=== PATIENT | male | born 1970 | race Caucasian/White ===

== ENCOUNTER 2024-11-18 18:59 | Emergency (ER) | payer SELFPAY ==
[2024-11-18 19:12] VITALS: BP 171/100; PULSE 89; O2SAT 100
--- NOTE | 2024-11-18 19:12 | ED_ITS ---
Discharge Plan Disposition Patient Disposition: Home, Self-Care Condition: Good Referrals Follow up/Referrals: Provider,Referral, MD [Primary Care Provider, Medical] - See instructions Activity Restrictions/Add. Instructions Additional Instructions/Restrictions: I recommend following up with your PCP if you have any persistent new or worsening signs or symptoms. Additionally you were significantly hypertensive on arrival and should keep a blood pressure record when you return turn to see your PCP in [place]. If you have any need to return to the emergency department for worsening signs or symptoms return as needed. Clinical Impressions Clinical Impression: Headache Qualifiers: Headache type: unspecified Headache chronicity pattern: acute headache I ntractability: not intractable Qualified Code(s): R51.9 - Headache, unspecified Print Language Print Language: Frisian Discharge ED Provider: Stephan Silva Adult HPI <LESLIE Claire - Last Filed: 11/18/24 21:46> General Chief complaint: Fever Stated complaint: Fever,body aches Time Seen by Provider: 11/18/24 19:12 History of Present Illness HPI narrative: Patient presents for evaluation of subjective fever. Patient reports that he arrived from [place] for his grandsons birthday and has felt unwell. 3 days ago he had a right lower molar pulled. He is supposed to be on Augmentin and pain medication however he has lost his antibiotic but is still having the pain medication. Today he stated that he has have a pounding headache and felt feverish. He denies any chest pain shortness of breath hemoptysis hematochezia melena hematemesis hematuria nausea vomiting or diarrhea. Related Data Allergies Allergy/AdvReac Type Severity Reaction Status Date / Time No Known Allergies Allergy Verified 11/18/24 19:25 [facility] <LESLIE Claire - Last Filed: 11/18/24 21:46> [facility] Disclaimer: The information contained in this section may have been updated after the patient was seen, as this information can be updated by other users. Social History (Updated 11/18/24 @ 21:46 by LESLIE Claire) Smoking Status: Never smoker alcohol intake: never current occupational status: employed Travel in the last 8 weeks?: None Have you lived/traveled outside US in past 30 days?: No Contact w/someone who lives/traveled outside US past 30 days?: No Exposure to someone with infectious disease in past 14 days?: No Do you have a fever (greater than 100.4 F or 38 C)?: No Have you tested positive for COVID-19?: No Exposed to someone with COVID-19 in past 14 days?: No Do you have a sore throat?: No Do you have a cough?: No Do you have any weakness?: No Do you have any diarrhea?: No Are you experiencing any unusual bleeding?: No Do you have any muscle aches/pain?: No Do you have any abdominal pain?: No Are you experiencing loss of taste or smell?: No <LESLIE Claire - Last Filed: 11/18/24 21:46> ROS Obtained: Yes Systems reviewed as appropriate & no additional complaints except as documented Physical Exam <LESLIE Claire - Last Filed: 11/18/24 21:46> General General appearance: alert and in no apparent distress Respiratory Respiratory exam: Present normal lung sounds bilaterally Cardiovascular Cardiovascular exam: Present regular rate Neurological Exam Neurological exam: Present alert, oriented X3 and CN II-XII intact Medical Decision Making <LESLIE Claire - Last Filed: 11/18/24 21:46> Medical Records Medical records reviewed: Yes I reviewed the patient's medical records. Screening: Per USPSTF and CDC recommendations, given the prevalence of disease in our region, it is our hospital?s policy to screen for HIV and viral Hepatitis for all patients aged 18 and over and those with ongoing risk factors. Shawn Inquiry Pt receiving controlled substance: No Vital Signs: 11/18/24 19:12 11/18/24 19:21 11/18/24 22:06 Temperature 98.1 F 98.1 F Temperature Source Oral Pulse Rate 89 95 H Pulse Rate [Right] 99 H Respiratory Rate 16 20 Blood Pressure 171/100 H 116/68 Blood Pressure [Right Arm] 171/100 H Blood Pressure Mean [Right Arm] 123 02 Sat by Pulse Oximetry 100 98 Oxygen Delivery Method Room Air Lab Data Lab results reviewed: Yes I reviewed the patient's lab results. Lab Results 11/18/24 19:45: WBC 4.6 L, RBC 4.50 L, Hgb 14.1, Hct 41.9 L, MCV 93.1, MCH 31.3 H, MCHC 33.7, RDW 12.8, Plt Count 172, MPV 10.2, Neut % (Auto) 59.2, Lymph % (Auto) 29.5, Lewis % (Auto) 10.5 H, Eos % (Auto) 0.4, Baso % (Auto) 0.2, Neut # (Auto) 2.7, Lymph # (Auto) 1.4, Lewis # (Auto) 0.5, Eos # (Auto) 0.0, Baso # (Auto) 0.0, Sodium 134 L, Potassium 4.2, Chloride 101, Carbon Dioxide 32 H, Anion Gap 5.2, BUN 12, Creatinine 1.00, Estimated Creat Clear 99, Estimated GFR 78, Est GFR ( Amer) 95, Glucose 102 H, Calcium 9.7, Magnesium 1.9, Total Bilirubin 0.7, AST 38, ALT 26, Alkaline Phosphatase 74, C-Reactive Protein 3.3, Total Protein 9.6 H, Albumin 4.1, Globulin 5.5 H, Albumin/Globulin Ratio 0.7 L, Procalcitonin 0.081, Urine Color Yellow, Urine Appearance Clear, Urine pH 6.0, Ur Specific Douds 1.025, Urine Protein Trace, Urine Glucose (UA) Negative, Urine Ketones Negative, Urine Blood Negative, Urine Nitrate Negative, Urine Bilirubin Negative, Urine Urobilinogen 4.0, Ur Leukocyte Esterase Negative, Urine RBC 3-5, Urine WBC 3-5, Ur Squamous Epith Cells 5-10, Urine Bacteria 1+, Urine Mucus 2+ 11/18/24 19:45 11/18/24 19:45 Orders (Tests/Meds): ED MEDICATIONS Discontinued Medications Generic Name Dose Route Start Last Admin Trade Name Noris PRN Reason Stop Dose Admin Acetaminophen 1,000 mg 11/18/24 19:24 11/18/24 19:57 Acetaminophen 1,000mg/100ml Vial IV 11/18/24 19:25 1,000 mg ONCE ONE Administration Dexamethasone Sodium Phosphate 10 mg 11/18/24 20:42 11/18/24 21:08 Dexamethasone 4mg/Ml 5ml Mdv IV 11/18/24 20:43 10 mg ONCE ONE Administration Diphenhydramine HCl 50 mg 11/18/24 20:42 11/18/24 20:57 Diphenhydramine 50mg/Ml Vial IV 11/18/24 20:43 50 mg ONCE ONE Administration Sodium Chloride 1,000 mls @ 999 mls/hr 11/18/24 19:27 11/18/24 19:57 Sod Chlor 0.9% 1000ml Bag IV 11/18/24 20:27 999 mls/hr .Q1H1M ONE Administration Iopamidol 80 ml 11/18/24 21:08 11/18/24 21:24 Iopamidol-370 (76%);100ml Bottle IV 11/18/24 21:09 80 ml ONCE ONE Administration Ketorolac Tromethamine 15 mg 11/18/24 19:24 11/18/24 19:58 Ketorolac 30mg/Ml Vial IV 11/18/24 19:25 15 mg ONCE ONE Administration Methocarbamol 500 mg 11/18/24 20:42 11/18/24 20:57 Methocarbamol 500mg Tablet PO 11/18/24 20:43 500 mg ONCE ONE Administration Ondansetron HCl 4 mg 11/18/24 19:24 11/18/24 19:58 Ondansetron 4mg/2ml Vial IV 11/18/24 19:25 4 mg ONCE ONE Administration Prochlorperazine Edisylate 10 mg 11/18/24 20:58 11/18/24 21:15 Prochlorperazine 10mg/2ml Vial IV 11/18/24 20:59 10 mg ONCE ONE Administration Sodium Chloride 40 ml 11/18/24 21:08 11/18/24 21:24 0.9 % Sodium Chloride 50 Ml Vial IV 11/18/24 21:09 40 ml ONCE ONE Administration Sodium Chloride 10 ml 11/18/24 21:08 11/18/24 21:24 Sodium Chloride 0.9% 10ml Syr (Rad Only) IV 12/18/24 21:07 10 ml NEEDED PRN Administration Maintain IV Site ORDERS Category Date Time Status CT angio head Stat Cat Scan 11/18/24 20:[address] angio neck Stat Cat Scan 11/18/24 20:[address] head/brain wo con Stat Cat Scan 11/18/24 20:54 Completed CBC w/Auto Diff [Complete Blood Count Auto Diff] Stat Lab 11/18/24 19:45 Completed CMP [Comprehensive Metabolic Panel] Stat Lab 11/18/24 19:45 Completed CRP [C-Reactive Protein] Stat Lab 11/18/24 19:45 Completed Magnesium Stat Lab 11/18/24 19:45 Completed Procalcitonin Stat Lab 11/18/24 19:45 Completed UA [Urinalysis and Microscopic] Stat Lab 11/18/24 19:45 Completed Medical Decision Narrative: In summary patient is a 54-year-old male who presents to the emergency department for evaluation of subjective fever and headache. Patient is hemodynamically stable but is hypertensive on arrival with a blood pressure 171/100 heart rate 89 normal sinus rhythm on bedside monitor breathing 16 times a minute satting at 100% room air upon arrival, afebrile at 98.1. Physical exam is remarkable for severe dental caries in the oropharynx however there is no evidence of abscess cellulitis Esteban's angina palpable cervical lymph nodes. Pupils equal round reactive to light cranial nerves II through XII intact grossly to exam patient is awake alert and oriented person place and circumstance. Patient has no nuchal rigidity or meningeal signs C-spine is nontender. Patient has full range of motion of his neck without pain.. Differential diagnosis includes headache versus dehydration versus sepsis versus infection etc. Initial workup will be conducted with hematologic labs CT scan of the head without contrast CTA of the head and neck. Initial interventions include crystalloid bolus Toradol Tylenol and migraine cocktail. Initial workup reviewed by me shows his hematologic labs are nonactionable with no evidence of sepsis and my informal potation of his imaging shows no acute intracranial process or vascular abnormality prior to radiology read. Please see final read formal interpretation. Upon repeat evaluation patient had complete resolution of his symptoms after initial intervention. Given this patient is appropriate for discharge with follow-up with his PCP as an outpatient for his blood pressure and strict return precautions. <Stephan Silva MD - Last Filed: 11/18/24 23:22> Vital Signs: 11/18/24 19:12 11/18/24 19:21 11/18/24 22:06 Temperature 98.1 F 98.1 F Temperature Source Oral Pulse Rate 89 95 H Pulse Rate [Right] 99 H Respiratory Rate 16 20 Blood Pressure 171/100 H 116/68 Blood Pressure [Right Arm] 171/100 H Blood Pressure Mean [Right Arm] 123 02 Sat by Pulse Oximetry 100 98 Oxygen Delivery Method Room Air Lab Data Lab Results 11/18/24 19:45: WBC 4.6 L, RBC 4.50 L, Hgb 14.1, Hct 41.9 L, MCV 93.1, MCH 31.3 H, MCHC 33.7, RDW 12.8, Plt Count 172, MPV 10.2, Neut % (Auto) 59.2, Lymph % (Auto) 29.5, Lewis % (Auto) 10.5 H, Eos % (Auto) 0.4, Baso % (Auto) 0.2, Neut # (Auto) 2.7, Lymph # (Auto) 1.4, Lewis # (Auto) 0.5, Eos # (Auto) 0.0, Baso # (Auto) 0.0, Sodium 134 L, Potassium 4.2, Chloride 101, Carbon Dioxide 32 H, Anion Gap 5.2, BUN 12, Creatinine 1.00, Estimated Creat Clear 99, Estimated GFR 78, Est GFR ( Amer) 95, Glucose 102 H, Calcium 9.7, Magnesium 1.9, Total Bilirubin 0.7, AST 38, ALT 26, Alkaline Phosphatase 74, C-Reactive Protein 3.3, Total Protein 9.6 H, Albumin 4.1, Globulin 5.5 H, Albumin/Globulin Ratio 0.7 L, Procalcitonin 0.081, Urine Color Yellow, Urine Appearance Clear, Urine pH 6.0, Ur Specific Douds 1.025, Urine Protein Trace, Urine Glucose (UA) Negative, Urine Ketones Negative, Urine Blood Negative, Urine Nitrate Negative, Urine Bilirubin Negative, Urine Urobilinogen 4.0, Ur Leukocyte Esterase Negative, Urine RBC 3-5, Urine WBC 3-5, Ur Squamous Epith Cells 5-10, Urine Bacteria 1+, Urine Mucus 2+ Orders (Tests/Meds): ED MEDICATIONS Discontinued Medications Generic Name Dose Route Start Last Admin Trade Name Freq PRN Reason Stop Dose Admin Acetaminophen 1,000 mg 11/18/24 19:24 11/18/24 19:57 Acetaminophen 1,000mg/100ml Vial IV 11/18/24 19:25 1,000 mg ONCE ONE Administration Dexamethasone Sodium Phosphate 10 mg 11/18/24 20:42 11/18/24 21:08 Dexamethasone 4mg/Ml 5ml Mdv IV 11/18/24 20:43 10 mg ONCE ONE Administration Diphenhydramine HCl 50 mg 11/18/24 20:42 11/18/24 20:57 Diphenhydramine 50mg/Ml Vial IV 11/18/24 20:43 50 mg ONCE ONE Administration Sodium Chloride 1,000 mls @ 999 mls/hr 11/18/24 19:27 11/18/24 19:57 Sod Chlor 0.9% 1000ml Bag IV 11/18/24 20:27 999 mls/hr .Q1H1M ONE Administration Iopamidol 80 ml 11/18/24 21:08 11/18/24 21:24 Iopamidol-370 (76%);100ml Bottle IV 11/18/24 21:09 80 ml ONCE ONE Administration Ketorolac Tromethamine 15 mg 11/18/24 19:24 11/18/24 19:58 Ketorolac 30mg/Ml Vial IV 11/18/24 19:25 15 mg ONCE ONE Administration Methocarbamol 500 mg 11/18/24 20:42 11/18/24 20:57 Methocarbamol 500mg Tablet PO 11/18/24 20:43 500 mg ONCE ONE Administration Ondansetron HCl 4 mg 11/18/24 19:24 11/18/24 19:58 Ondansetron 4mg/2ml Vial IV 11/18/24 19:25 4 mg ONCE ONE Administration Prochlorperazine Edisylate 10 mg 11/18/24 20:58 11/18/24 21:15 Prochlorperazine 10mg/2ml Vial IV 11/18/24 20:59 10 mg ONCE ONE Administration Sodium Chloride 40 ml 11/18/24 21:08 11/18/24 21:24 0.9 % Sodium Chloride 50 Ml Vial IV 11/18/24 21:09 40 ml ONCE ONE Administration Sodium Chloride 10 ml 11/18/24 21:08 11/18/24 21:24 Sodium Chloride 0.9% 10ml Syr (Rad Only) IV 12/18/24 21:07 10 ml NEEDED PRN Administration Maintain IV Site ORDERS Category Date Time Status CT angio head Stat Cat Scan 11/18/24 20:[address] angio neck Stat Cat Scan 11/18/24 20:[address] head/brain wo con Stat Cat Scan 11/18/24 20:54 Completed CBC w/Auto Diff [Complete Blood Count Auto Diff] Stat Lab 11/18/24 19:45 Completed CMP [Comprehensive Metabolic Panel] Stat Lab 11/18/24 19:45 Completed CRP [C-Reactive Protein] Stat Lab 11/18/24 19:45 Completed Magnesium Stat Lab 11/18/24 19:45 Completed Procalcitonin Stat Lab 11/18/24 19:45 Completed UA [Urinalysis and Microscopic] Stat Lab 11/18/24 19:45 Completed Medical Decision Narrative: In summary patient is a 54-year-old male who presents to the emergency department for evaluation of subjective fever and headache. Patient is hemodynamically stable but is hypertensive on arrival with a blood pressure 171/100 heart rate 89 normal sinus rhythm on bedside monitor breathing 16 times a minute satting at 100% room air upon arrival, afebrile at 98.1. Physical exam is remarkable for severe dental caries in the oropharynx however there is no evidence of abscess cellulitis Esteban's angina palpable cervical lymph nodes. Pupils equal round reactive to light cranial nerves II through XII intact grossly to exam patient is awake alert and oriented person place and circumstance. Patient has no nuchal rigidity or meningeal signs C-spine is nontender. Patient has full range of motion of his neck without pain.. Differential diagnosis includes headache versus dehydration versus sepsis versus infection etc. Initial workup will be conducted with hematologic labs CT scan of the head without contrast CTA of the head and neck. Initial interventions include crystalloid bolus Toradol Tylenol and migraine cocktail. Initial workup reviewed by me shows his hematologic labs are nonactionable with no evidence of sepsis and my informal potation of his imaging shows no acute intracranial process or vascular abnormality prior to radiology read. Please see final read formal interpretation. Upon repeat evaluation patient had complete resolution of his symptoms after initial intervention. Given this patient is appropriate for discharge with follow-up with his PCP as an outpatient for his blood pressure and strict return precautions. I was consulted by the MATTHEW, and we discussed the complexity of the problems being addressed.I approved the treatment and management plan for this patient?s care in the Emergency Department, thus performing a substantive portion of the medical decision making.Signed, Stephan Silva MD MBA Critical Care <LESLIE Claire - Last Filed: 11/18/24 21:46> Critical Care Time Critical Care Time: No
[2024-11-18 19:21] VITALS: BP 171/100; PULSE 99; RESP 16; TEMP 36.7; O2SAT 98; BMI 25.1
[2024-11-18 19:50] LABS: Appearance,Urine CLEAR (Clear); Bilirubin,Urine Negative (Negative); Blood, Urine Negative (Negative); Color,Urine YELLOW (Yellow); Glucose,Urine (UA) Negative (Negative); Ketones,Urine Negative (Negative); Leukocyte Esterase,Urine Negative (Negative); Nitrate,Urine Negative (Negative); Protein,Urine TRACE (Negative); Specific Gravity, Urine 1.025 (1.005-1.030)
[2024-11-18 19:52] LABS: Microscopic, Urine URINE MICROSCOPIC (MICROSCOPIC)
[2024-11-18] MEDS: 0.9 % SODIUM CHLORIDE 1000ML 1,000 ML 999 ML IV (19:57)
[2024-11-18] MEDS: ACETAMINOPHEN 1,000MG/100ML VIAL 1000 MG IV (19:57)
[2024-11-18] MEDS: ONDANSETRON 4MG/2ML VIAL 4 MG IV (19:58)
[2024-11-18] MEDS: KETOROLAC 30MG/ML VIAL 15 MG IV (19:58)
[2024-11-18 19:59] LABS: Basophils % 0.2 % (0.1-2.0); Eosinophils % 0.4 % (0.1-12.0); Hematocrit 41.9 % (42.0-52.0); Hemoglobin 14.1 g/dL (14.1-18.0); Immature Granulocytes # 0.01 10^3uL; Immature Granulocytes % 0.2 %; Lymphocytes # 1.4 K/mm3 (0.7-4.5); Lymphocytes % 29.5 % (10-50); Mean Corpuscular HGB Conc 33.7 g/dL (31.8-35.4); Mean Corpuscular Hemoglobin 31.3 pg (27.0-31.2); Mean Corpuscular Volume 93.1 fl (80-94); Mean Platelet Volume 10.2 fl (7.4-10.4); Monocytes # 0.5 K/mm3 (0.1-1.0); Monocytes % 10.5 % (1.7-9.3); Neutrophils # 2.7 K/mm3 (1.8-7.8); Neutrophils % 59.2 % (37.0-80.0); Nucleated Red Blood Cells # 0 10^3/uL; Nucleated Red Blood Cells % 0 %; Platelet Count 172 K/mm3 (142-424); Red Cell Distribution Width 12.8 % (11.5-17.5); Red Cell Distribution Width-SD 43.9 fL; White Blood Count 4.6 K/mm3 (4.8-10.8)
[2024-11-18 20:00] LABS: Bacteria,Urine 1+ /lpf; Mucus,Urine 2+ /lpf
[2024-11-18 20:02] LABS: Alanine Aminotransferase 26 U/L (12-78); Albumin Level 4.1 g/dl (3.5-5.0); Albumin/Globulin Ratio 0.7 (1.1-1.8); Alkaline Phosphatase 74 U/L (38-126); Anion Gap 5.2 mEq/L (5-15); Aspartate Amino Transferase 38 U/L (17-59); Bilirubin,Total 0.7 mg/dl (0.2-1.3); Blood Urea Nitrogen 12 mg/dl (9-20); Calcium 9.7 mg/dl (8.4-10.2); Carbon Dioxide 32 mmol/L (22.0-30.0); Chloride 101 mmol/L (98-107); Creatinine Clearance Estimated 99 mL/min (50-200); Estimated Glomerular Filt Rate 78 ml/min (>60); GFR (African American) 95 ML/MIN (>60); Globulin 5.5 g/dL (1.3-3.2); Glucose 102 mg/dl (74-100); Potassium 4.2 mmoL/L (3.5-5.1); Sodium 134 mmol/L (136-145); Total Protein,Serum 9.6 g/dl (6.3-8.2)
[2024-11-18 20:03] LABS: Magnesium 1.9 mg/dl (1.6-2.3)
[2024-11-18 20:07] LABS: C-Reactive Protein 3.3 mg/L (0-4)
[2024-11-18 20:19] LABS: Procalcitonin 0.081 ng/mL (0.0-2.0)
--- NOTE | 2024-11-18 20:53 | CT_ITS ---
PROCEDURE INFORMATION: Exam: CTA Head With Contrast, Arteriography Exam date and time: 11/18/2024 9:11 PM Age: 54 years old Clinical indication: Pain; Headache; Additional info: Intractable headache TECHNIQUE: Imaging protocol: Computed tomographic angiography of the head with contrast. Exam focused on the arteries. 3D rendering (Not supervised by radiologist): MIP and/or 3D reconstructed images were created by the technologist. Radiation optimization: All CT scans at this facility use at least one of these dose optimization techniques: automated exposure control; mA and/or kV adjustment per patient size (includes targeted exams where dose is matched to clinical indication); or iterative reconstruction. Contrast material: ISO 370; Contrast volume: 80 ml; Contrast route: INTRAVENOUS (IV); COMPARISON: CT HEAD/BRAIN WO CON 11/18/2024 9:09 PM FINDINGS: ANTERIOR CIRCULATION: Right internal carotid artery: Intracranial segment is patent with no significant stenosis. No aneurysm. Right middle cerebral artery: No occlusion or significant stenosis. No aneurysm. Right anterior cerebral artery: No occlusion or significant stenosis. No aneurysm. Left internal carotid artery: Intracranial segment is patent with no significant stenosis. No aneurysm. Left middle cerebral artery: No occlusion or significant stenosis. No aneurysm. Left anterior cerebral artery: No occlusion or significant stenosis. No aneurysm. POSTERIOR CIRCULATION: Right vertebral artery: No occlusion or significant stenosis. No aneurysm. Left vertebral artery: No occlusion or significant stenosis. No aneurysm. Basilar artery: No occlusion or significant stenosis. No aneurysm. Right posterior cerebral artery: No occlusion or significant stenosis. No aneurysm. Left posterior cerebral artery: No occlusion or significant stenosis. No aneurysm. Veins: Venous sinuses and cerebral veins are patent. No intraluminal thrombus. Brain: No hemorrhage, mass effect, or midline shift. Cerebral ventricles: No ventriculomegaly. Bones/joints: Unremarkable. No acute fracture. Soft tissues: Unremarkable. IMPRESSION: 1. No large vessel stenosis or occlusion. 2. No acute findings.
--- NOTE | 2024-11-18 20:53 | CT_ITS ---
PROCEDURE INFORMATION: Exam: CTA Neck With Contrast Exam date and time: 11/18/2024 9:11 PM Age: 54 years old Clinical indication: Pain; Headache; Additional info: Intractable headache TECHNIQUE: Imaging protocol: Computed tomographic angiography of the neck with contrast. Exam focused on the cervical segments of the vasculature. 3D rendering (Not supervised by radiologist): MIP and/or 3D reconstructed images were created by the technologist. Radiation optimization: All CT scans at this facility use at least one of these dose optimization techniques: automated exposure control; mA and/or kV adjustment per patient size (includes targeted exams where dose is matched to clinical indication); or iterative reconstruction. Contrast material: ISO 370; Contrast volume: 80 ml; Contrast route: INTRAVENOUS (IV); COMPARISON: CT HEAD/BRAIN WO CON 11/18/2024 9:09 PM FINDINGS: Right common carotid artery: No stenosis. No dissection or occlusion. Right internal carotid artery: No stenosis of the extracranial segment. No dissection or occlusion. Right external carotid artery: No occlusion or stenosis of the origin. Left common carotid artery: No stenosis. No dissection or occlusion. Left internal carotid artery: No stenosis of the extracranial segment. No dissection or occlusion. Left external carotid artery: No occlusion or stenosis of the origin. Right vertebral artery: No stenosis. No dissection or occlusion. Left vertebral artery: No stenosis. No dissection or occlusion. Lymph nodes: There are numerous small bilateral cervical lymph nodes measuring up to 1.6 cm. Soft tissues: Unremarkable. Bones/joints: No acute fracture. Lungs: 1.4 cm noncalcified nodule in the right upper lobe. 2.1 cm cavitary noncalcified mass in the left upper lobe. 9 mm noncalcified left upper lobe nodule. IMPRESSION: 1. No significant stenosis or large vessel occlusion. 2. Multiple noncalcified pulmonary nodules in both lungs measuring up to 2.[address] follow-up is recommended. 3. Nonspecific cervical lymphadenopathy. REFERENCES: NASCET CRITERIA. The degree of stenosis in the cervical segment of the internal carotid artery is based on NASCET criteria. Normal is no stenosis. Mild is less than 50% stenosis. Moderate is 50-69% stenosis. Severe is 70% to 99% stenosis. Total occlusion is no detectable patent lumen.
--- NOTE | 2024-11-18 20:54 | CT_ITS ---
PROCEDURE INFORMATION: Exam: CT Head Without Contrast Exam date and time: 11/18/2024 9:09 PM Age: 54 years old Clinical indication: Pain; Headache; Additional info: Intractable headache TECHNIQUE: Imaging protocol: Computed tomography of the head without contrast. Radiation optimization: All CT scans at this facility use at least one of these dose optimization techniques: automated exposure control; mA and/or kV adjustment per patient size (includes targeted exams where dose is matched to clinical indication); or iterative reconstruction. COMPARISON: No relevant prior studies available. FINDINGS: Brain: Unremarkable. No hemorrhage or acute infarction. Unremarkable white matter. No midline shift or mass effect. Cerebral ventricles: No hydrocephalus. Paranasal sinuses: Paranasal sinuses are clear. Mastoid air cells: Mastoid air cells are clear. Bones: Unremarkable. No acute fracture. Soft tissues: Unremarkable. IMPRESSION: No acute intracranial abnormality.
[2024-11-18] MEDS: diphenhydrAMINE 50MG/ML VIAL 50 MG IV (20:57)
[2024-11-18] MEDS: METHOCARBAMOL 500MG TABLET 500 MG PO (20:57)
[2024-11-18] MEDS: DEXAMETHASONE 4MG/ML 5ML MDV 10 MG IV (21:08)
[2024-11-18] MEDS: PROCHLORPERAZINE 10MG/2ML VIAL 10 MG IV (21:15)
[2024-11-18] MEDS: IOPAMIDOL-370 (76%);100ML BOTTLE 80 ML IV (21:24)
[2024-11-18] MEDS: SODIUM CHLORIDE 0.9% 10ML SYR (RAD ONLY) 10 ML IV (21:24)
[2024-11-18] MEDS: 0.9 % SODIUM CHLORIDE 50 ML VIAL 40 ML IV (21:24)
[2024-11-18 22:06] VITALS: BP 116/68; PULSE 95; RESP 20; TEMP 36.7; O2SAT 99
== END 2024-11-18 22:52 | disposition home or self-care (01) ==
PROVIDERS: Physician Assistant; Emergency Provider Emergency Medicine
DX: R51.9 Headache, unspecified (principal); I10 Essential (primary) hypertension
CPT/HCPCS: 70450; 70496; 70498; 80053; 81001; 83735; 84145; 85025; 86140; 96361; 96372; 96374; 96375; 99285; J0131; J0780; J1100; J1200; J1885; J2405; J7030; Q9967